=== PATIENT | female | born 2000 | race Two or more races ===

== ENCOUNTER → 2020-07-27 | Outpatient (CLI) | payer OTHER | END | disposition home or self-care (01) | LOC: PRENATAL 09:30 | PROVIDERS: ATTEND Obstetrics & Gynecology Maternal & Fetal Medicine | DX: O35.0XX1 Maternal care for (suspected) central nervous system malformation in fetus, fetus 1 (principal); O35.3XX1 Maternal care for (suspected) damage to fetus from viral disease in mother, fetus 1; O98.512 Other viral diseases complicating pregnancy, second trimester; Z36.89 Encounter for other specified antenatal screening; Z3A.20 20 weeks gestation of pregnancy ==

== ENCOUNTER 2020-09-19 15:09 | Outpatient (CLI) | payer OTHER ==
[2020-09-19] MEDS ORDERED: PRENATAL CAPLE1 EAC1 PO (15:18)
== END 2020-09-19 16:41 | disposition home or self-care (01) ==
LOC: OBS/DEL 15:09
PROVIDERS: ATTEND Obstetrics & Gynecology
DX: O26.892 Other specified pregnancy related conditions, second trimester (principal); R10.2 Pelvic and perineal pain; Z04.3 Encounter for examination and observation following other accident; W18.09XA Striking against other object with subsequent fall, initial encounter; Y93.01 Activity, walking, marching and hiking; Y92.89 Other specified places as the place of occurrence of the external cause; Y99.8 Other external cause status

== ENCOUNTER → 2020-10-12 | Outpatient (CLI) | payer OTHER ==
[~2020-10-12] MED LIST: PRENATAL CAPLE1 EAC1 PO
== END | disposition home or self-care (01) ==
LOC: PRENATAL 10:30
PROVIDERS: ATTEND Obstetrics & Gynecology Maternal & Fetal Medicine
DX: O26.843 Uterine size-date discrepancy, third trimester (principal); O35.0XX1 Maternal care for (suspected) central nervous system malformation in fetus, fetus 1; O98.513 Other viral diseases complicating pregnancy, third trimester; Z36.89 Encounter for other specified antenatal screening; Z3A.33 33 weeks gestation of pregnancy

== ENCOUNTER 2020-11-26 03:22 | Inpatient (IN) | payer OTHER ==
[~2020-11-26] VITALS: Ht 160 cm; Wt 87.5 kg
[2020-11-28] MEDS ORDERED: IBU600 MG PO (09:48)
[2020-11-28] MEDS ORDERED: FUSION PLUS CA1 EACH PO (09:48)
== END 2020-11-28 13:25 | disposition home or self-care (01) | DRG 807 ==
LOC: LDR 03:22 → OB/GYN 03:22
PROVIDERS: ADMIT Obstetrics & Gynecology; ATTEND Obstetrics & Gynecology
PROC: 10E0XZZ Delivery of Products of Conception, External Approach (ICD-10-PCS; principal; 2020-11-26)
PROC: 0HQ9XZZ Repair Perineum Skin, External Approach (ICD-10-PCS; 2020-11-26)
PROC: 4A1HXFZ Monitoring of Products of Conception, Cardiac Rhythm, External Approach (ICD-10-PCS; 2020-11-26)
DX: O70.0 First degree perineal laceration during delivery (principal); Z37.0 Single live birth; Z3A.37 37 weeks gestation of pregnancy; Z20.822 Contact with and (suspected) exposure to COVID-19

== ENCOUNTER 2023-01-25 10:34 | Emergency (ER) | payer OTHER ==
[~2023-01-25] VITALS: Ht 152.4 cm; Wt 68.0 kg
[~2023-01-25 10:34] MED LIST changes: +FUSION PLUS CA1 EACH PO; +IBU600 MG PO
== END 2023-01-25 14:10 | disposition home or self-care (01) ==
LOC: ER 10:34
DX: K52.9 Noninfective gastroenteritis and colitis, unspecified (principal)